=== PATIENT | female | born 1955 | race Caucasian/White ===

== ENCOUNTER → 2024-01-03 14:33 | Outpatient (REF) | payer OTHER, MEDICARE, SELFPAY | LOC: WDC 14:33 | PROVIDERS: ATTENDING PHYSICIAN Nurse Practitioner | DX: Z12.31 Encounter for screening mammogram for malignant neoplasm of breast (principal) | CPT/HCPCS: 77063; 77067 ==

== ENCOUNTER → 2024-04-17 07:27 | Outpatient (REF) | payer OTHER, MEDICARE, SELFPAY | LOC: RAD 07:27 | PROVIDERS: ATTENDING PHYSICIAN Nurse Practitioner | DX: M25.511 Pain in right shoulder (principal); M25.512 Pain in left shoulder | CPT/HCPCS: 73030 ==

== ENCOUNTER → 2025-04-29 12:14 | Outpatient (REF) | payer MEDICARE, OTHER, SELFPAY | LOC: RAD 12:14 | PROVIDERS: ATTENDING PHYSICIAN Nurse Practitioner | DX: S63.522A Sprain of radiocarpal joint of left wrist, initial encounter (principal) | CPT/HCPCS: 73110 ==

== ENCOUNTER 2025-05-01 06:30 | Day surgery (SDC) | payer MEDICARE, OTHER, SELFPAY ==
[2025-05-01] VITALS (8 sets, daily range): BP systolic 135–148; BP diastolic 61–74; BMI 18.7
[2025-05-01] MEDS: NORMOSOL-R/PLASMALYTE-A 1000 IV (11:12)
[2025-05-01] MEDS: CELEBREX 200 MG PO (11:13)
[2025-05-01] MEDS: TYLENOL 1000 MG PO (11:13)
[2025-05-01 11:18] LABS: Hematocrit 41.1 % (37.0-47.0); Hemoglobin 13.5 g/dL (12.0-16.0); Mean Corp Hgb Conc. 32.8 g/dL (33.0-37.0); Mean Corpuscular Volume 90.1 fL (81.0-99.0); Platelet Count 238 10^3/uL (130-400); Red Cell Dist. Width 12.1 % (11.5-14.5)
[2025-05-01 12:19] LABS: ALT (SGPT) 15 U/L (0-35); AST (SGOT) 18 U/L (14-36); Albumin 3.8 g/dl (3.5-5.0); Alkaline Phosphatase 47 U/L (38-126); Blood Urea Nitrogen 14 mg/dl (7-17); Calcium 9.3 mg/dl (8.4-10.2); Carbon Dioxide 26 mmol/L (22-30); Chloride 110 mmol/L (98-107); Estimated Creatinine Clearance 76 ml/min; Glucose 87 mg/dl (70-99); Potassium 4.2 mmol/L (3.5-5.1); Sodium 137 mmol/L (135-145); Total Protein 6.1 g/dl (6.3-8.2); eGFR > 60.00
[2025-05-01] MEDS: MORPHINE SULFATE 2 MG IV (14:35)
[2025-05-01] MEDS: ROXICODONE 5 MG PO (15:19)
== END 2025-05-01 15:49 | disposition home or self-care (01) ==
LOC: SDS 06:30
PROVIDERS: ATTENDING PHYSICIAN Orthopaedic Surgery Hand Surgery
DX: S52.502A Unspecified fracture of the lower end of left radius, initial encounter for closed fracture (principal); X58.XXXA Exposure to other specified factors, initial encounter
CPT/HCPCS: 25607; C1713; 80053; 85027; 93005

== ENCOUNTER → 2025-06-18 07:49 | Outpatient (REF) | payer MEDICARE, OTHER, SELFPAY | LOC: WDC 07:49 | PROVIDERS: ATTENDING PHYSICIAN Nurse Practitioner | DX: Z12.31 Encounter for screening mammogram for malignant neoplasm of breast (principal) | CPT/HCPCS: 77063; 77067 ==